=== PATIENT | male | born 1970 | race Caucasian/White ===

== ENCOUNTER 2017-03-30 00:27 | Emergency (ER) | payer SELFPAY ==
[~2017-03-30] VITALS: Ht 182.9 cm; Wt 95.6 kg
[2017-03-30 00:33] VITALS: BP 122/76; PULSE 86; RESP 18; TEMP 98; O2SAT 95
[2017-03-30 01:49] VITALS: BP 122/76; PULSE 86; RESP 18; O2SAT 99
[2017-03-30] MEDS ORDERED: LIDOCAINE HCL 2% JELLY 5 ML SYRINGE TOPICAL ONE (02:30)
[2017-03-30] MEDS ORDERED: LIDOCAINE HCL 2% 50 ML VIAL INFIL ONE (02:30)
[2017-03-30] MEDS ORDERED: IBUPROFEN 600 MG TAB PO ONE (02:30)
[2017-03-30] MEDS ORDERED: CLIN1CAP5 PO (02:55)
--- NOTE | 2017-03-30 02:55 | PD ---
HPI Chief Complaint: Skin Problem Time Seen by Provider: 02:24 Travel History International Travel<30 days: No Contact w/Intl Traveler<30days: No Traveled to known affect area: No History of Present Illness HPI Patient 46-year-old male with a history of recurrent abscesses presents emergency Department with swelling and redness of his right groin. Patient states it started yesterday in the next expanded fairly rapidly. He is not had any problems with dysuria discharge or history of STDs. Denies any fever bowel pain nausea vomiting diarrhea blood in the stool. Symptoms are moderate gradually worsening. Denies any testicular pain. PFSH Past Medical History Asthma: Yes ( A CHILD) Heart Rhythm Problems: No Cardiac Catheterization: No Cardiovascular Problems: Yes High Cholesterol: Yes Congestive Heart Failure: No COPD: Yes Diabetes: No Diminished Hearing: No Diverticulitis: Yes Hypertension: Yes Kidney Stones: Yes Respiratory: Yes (COPD) Integumentary: Yes (STATES A "SKIN DISEASE" UNK NAME) Immunizations Current: Yes ?: Not Past Surgical History Coronary Artery Bypass Graft: No Genitourinary Surgery: Yes (VASECTOMY) Tonsillectomy: Yes Family History Family Myocardial Infarction: Yes Social History Alcohol Use: Yes Tobacco Use: Yes (2 cigs per day) Substance Use: No Allergies-Medications (Allergen,Severity, Reaction): Coded Allergies: Codeine (Verified Allergy, Severe, ANAPHALXYIS, 03/30/17) Reported Meds & Prescriptions Reported Meds & Active Scripts Active Clindamycin (Clindamycin HCl) 150 Mg Cap 300 Mg PO Q6H 10 Days Review of Systems Except as stated in HPI: all other systems reviewed are Neg Physical Exam Narrative GENERAL: Well-nourished, well-developed patient. SKIN: Focused skin assessment warm/dry. There is silver dollar sized area of cellulitis to the right groin over the inguinal crease, minimal induration approximately quarter size. HEAD: Normocephalic. EYES: No scleral icterus. No injection or drainage. NECK: Supple, trachea midline. No JVD or lymphadenopathy. CARDIOVASCULAR: Regular rate and rhythm without murmurs, gallops, or rubs. RESPIRATORY: Breath sounds equal bilaterally. No accessory muscle use. GASTROINTESTINAL: Abdomen soft, non-tender, nondistended. GENITOURINARY normal circumcised penis, no scrotal tenderness, scrotal contents normal, there is no cellulitis of the perianal area scrotal skin or penis. MUSCULOSKELETAL: No cyanosis, or edema. BACK: Nontender without obvious deformity. No CVA tenderness. Data Data Last Documented VS Vital Signs Date Time Temp Pulse Resp B/P Pulse Ox O2 Delivery O2 Flow Rate FiO2 03/30/17 03:09 78 18 154/72 99 03/30/17 00:33 98.0 Orders Lidocaine 2% Jelly (Xylocaine 2% Jelly) (03/30/17 02:30) Lidocaine 2% Inj (Xylocaine 2% Inj) (03/30/17 02:30) Ibuprofen (Motrin) (03/30/17 02:30) Ed Poc Ultrasound (03/30/17 ) Clindamycin (Cleocin) (03/30/17 03:00) MDM Medical Decision Making Medical Screen Exam Complete: Yes Emergency Medical Condition: Yes Differential Diagnosis Cellulitis, abscess, LGV seems less likely, strangulated inguinal hernia seems unlikely. Narrative Course Patient was roomed emergency department, has allergy to codeine and was given ibuprofen and lidocaine jelly was applied. His pain did feel somewhat better with this. Bedside ultrasound showed minimal fluid collection. Discussed availability happy to patrizia his abscess for him but he could also consider antibiotic therapy and return to ED for reevaluation in lead hours or sooner if symptoms worsen he would like to try antibiotic therapy at this time. Discussed at length return to ED criteria symptomatic management home. Is given a first dose of and buttocks in the emergency department. Procedures Procedure Narrative Bedside ultrasound soft tissue shows significant cellulitis and cobblestoning with very small fluid collection was less than a cubic centimeter in total. Diagnosis Primary Impression: Cellulitis Qualified Code: L03.314 - Cellulitis of groin Additional Impression: Abscess Additional Instructions: If the swelling worsens return to emergency department for repeat evaluation. Med/Other Pt SpecificInfo: Prescription(s) given Scripts Clindamycin 150 Mg [id number] Mg PO Q6H 10 Days Ref 0 Prov:Krystian Muller MD 03/30/17 Disposition: 01 DISCHARGE HOME Condition: Stable Krystian Muller MD Mar 30, 2017 02:55
[2017-03-30] MEDS ORDERED: CLINDAMYCIN 150 MG CAP PO ONE (03:00)
[2017-03-30 03:09] VITALS: BP 154/72
== END 2017-03-30 03:11 | disposition home or self-care (01) ==
LOC: PHED 00:27
DX: L03.314 Cellulitis of groin (principal); L02.214 Cutaneous abscess of groin; I10 Essential (primary) hypertension; E78.00 Pure hypercholesterolemia, unspecified; Z72.0 Tobacco use; Z86.79 Personal history of other diseases of the circulatory system; Z87.09 Personal history of other diseases of the respiratory system; Z87.19 Personal history of other diseases of the digestive system; Z87.442 Personal history of urinary calculi
CPT/HCPCS: 99284

== ENCOUNTER 2017-05-30 21:43 | Emergency (ER) | payer SELFPAY ==
[~2017-05-30] VITALS: Ht 182.9 cm; Wt 90.5 kg
[~2017-05-30 21:43] MED LIST: CLIN1CAP5 PO
[2017-05-30 21:52] VITALS: BP 140/83; PULSE 82; RESP 16; TEMP 98.1; O2SAT 96
[2017-05-30] MEDS ORDERED: ACYC800T PO (22:15)
--- NOTE | 2017-05-30 22:21 | PD ---
HPI Chief Complaint: Skin Problem Time Seen by Provider: 10:05 Travel History International Travel<30 days: No Contact w/Intl Traveler<30days: No Traveled to known affect area: No History of Present Illness HPI 46-year-old male with chief complaint of a pruritic rash 2 days. Patient reports he was exposed to his friend who had adult-onset chickenpox. He reports the rash began on his axillary and upper arms and has spread rapidly over the last 12-24 hours to his trunk and arms and legs. He reports that the rash begins has a red papule and turns to blister and begins to cross. He reports intense itching. He denies fever, chills, headache. Patient is not immunocompromised. [facility] Past Medical History Asthma: Yes ( A CHILD) Heart Rhythm Problems: No Cardiac Catheterization: No Cardiovascular Problems: Yes High Cholesterol: Yes Congestive Heart Failure: No COPD: Yes Diabetes: No Diminished Hearing: No Diverticulitis: Yes Hypertension: Yes Kidney Stones: Yes Respiratory: Yes (COPD) Integumentary: Yes (STATES A "SKIN DISEASE" UNK NAME) Immunizations Current: Yes Tetanus Vaccination: < 5 Years Influenza Vaccination: No Past Surgical History Coronary Artery Bypass Graft: No Genitourinary Surgery: Yes (VASECTOMY) Tonsillectomy: Yes Social History Alcohol Use: Yes ([facility]) Tobacco Use: Yes (10/22 [[place]) Substance Use: No Allergies-Medications (Allergen,Severity, Reaction): Coded Allergies: Codeine (Verified Allergy, Severe, ANAPHALXYIS, 05/30/17) Reported Meds & Prescriptions Reported Meds & Active Scripts Active No Active Prescriptions or Reported Medications Review of Systems Except as stated in HPI: all other systems reviewed are Neg General / Constitutional: No: Fever Eyes: No: Visual changes HENT: No: Headaches Cardiovascular: No: Chest Pain or Discomfort Respiratory: No: Shortness of Breath Gastrointestinal: No: Abdominal Pain Genitourinary: No: Dysuria Musculoskeletal: No: Pain Skin: Positive Rash Physical Exam Narrative GENERAL: Well-nourished, well-developed patient. SKIN: Patient has a widespread rash with varying characteristics. There are small erythematous macules, erythematous papules, clear vesicles with crusting across to his trunk, upper and lower extremities. Rash is consistent with chickenpox. HEAD: Normocephalic. EYES: No scleral icterus. No injection or drainage. NECK: Supple, trachea midline. No JVD or lymphadenopathy. No meningismus CARDIOVASCULAR: Regular rate and rhythm without murmurs, gallops, or rubs. RESPIRATORY: Breath sounds equal bilaterally. No accessory muscle use. GASTROINTESTINAL: Abdomen soft, non-tender, nondistended. MUSCULOSKELETAL: No cyanosis, or edema. BACK: Nontender without obvious deformity. No CVA tenderness. Data Data Last Documented VS Vital Signs Date Time Temp Pulse Resp B/P Pulse Ox O2 Delivery O2 Flow Rate FiO2 05/30/17 22:01 05/30/17 21:52 98.1 82 16 96 [facility] Medical Decision Making Medical Screen Exam Complete: Yes Emergency Medical Condition: Yes Differential Diagnosis varicella, erythema multiform, impetigo, other Narrative Course 46-year-old male with chief complaint of pruritic painful rash 2 days. On physical exam the patient has small erythematous macules, erythematous papules, clear vesicles with crusting across to his trunk, upper and lower extremities. The rash is consistent with chickenpox. Patient reports his friend was recently diagnosed with chickenpox and he has had exposure to him. He denies fever, chills, headache. He is well-appearing. Patient will be treated with antivirals and instructed to take Benadryl and Tylenol as needed for symptoms. Return precautions discussed. Patient verbalizes understanding and agrees to plan Diagnosis Primary Impression: Chickenpox Qualified Code: B01.9 - Varicella without complication Referrals: Primary Care Physician Additional Instructions: Take antivirals as prescribed. He may take Benadryl 25/50 mg by mouth every 6 hours as needed for itching. He may take Tylenol as needed for pain and fever. Return to the emergency department if he developed new or worsening symptoms. Avoid contact with or immunocompromise persons. Scripts Acyclovir 800 Mg [id number] Mg PO 5 TIMES A DAY 7 Days Ref 0 Prov:Bekah Liu 05/30/17 Disposition: 01 DISCHARGE HOME Condition: Stable Bekah Liu May 30, 2017 22:21
== END 2017-05-30 22:30 | disposition home or self-care (01) ==
LOC: PHEFT 21:43
DX: B01.9 Varicella without complication (principal); I10 Essential (primary) hypertension; J44.9 Chronic obstructive pulmonary disease, unspecified; E78.00 Pure hypercholesterolemia, unspecified; Z87.442 Personal history of urinary calculi; F17.210 Nicotine dependence, cigarettes, uncomplicated
CPT/HCPCS: 99283

== ENCOUNTER 2017-08-27 15:56 | Emergency (ER) | payer SELFPAY ==
[~2017-08-27] VITALS: Ht 182.9 cm; Wt 86.0 kg
[~2017-08-27 15:56] MED LIST changes: +ACYC800T PO; -CLIN1CAP5 PO
[2017-08-27 16:02] VITALS: BP 156/90; PULSE 77; RESP 16; TEMP 98.1; O2SAT 97
[2017-08-27] MEDS ORDERED: TYLE325T PO (16:12)
[2017-08-27] MEDS ORDERED: IBUP1TAB5 PO (16:12)
[2017-08-27] MEDS ORDERED: CLIN150C14 PO (16:12)
--- NOTE | 2017-08-27 16:37 | PD ---
HPI Chief Complaint: Oral / Dental Pain or Problem Time Seen by Provider: 16:06 Travel History International Travel<30 days: No Contact w/Intl Traveler<30days: No Traveled to known affect area: No History of Present Illness HPI This is a 47 year old male who presents to the emergency department with facial swelling, constant, moderate severity, going on for 2 weeks with no associated fevers or chills. Pt. has been on 150 mg of clindamycin for 2 weeks, and despite this he has been worsening. Pt. has some pain under his eye and in his jaw. Pt. has had dental abscesses before. PFSH Past Medical History Asthma: Yes ( A CHILD) Heart Rhythm Problems: No Cardiac Catheterization: No Cardiovascular Problems: Yes High Cholesterol: Yes Congestive Heart Failure: No COPD: Yes Diabetes: No Diminished Hearing: No Diverticulitis: Yes Hypertension: Yes Kidney Stones: Yes Respiratory: Yes (COPD) Integumentary: Yes (STATES A "SKIN DISEASE" UNK NAME) Immunizations Current: Yes Tetanus Vaccination: > 5 Years Influenza Vaccination: No Past Surgical History Coronary Artery Bypass Graft: No Genitourinary Surgery: Yes (VASECTOMY) Tonsillectomy: Yes Family History Family Myocardial Infarction: Yes Social History Alcohol Use: Yes (OCC) Tobacco Use: Yes (1ppd) Substance Use: No Allergies-Medications (Allergen,Severity, Reaction): Coded Allergies: codeine (Verified Allergy, Severe, ANAPHALXYIS, 08/27/17) Reported Meds & Prescriptions Reported Meds & Active Scripts Active Reported Ibuprofen 400 Mg Tab 400 Mg PO Q6H PRN Tylenol (Acetaminophen) 325 Mg Tab 650 Mg PO ONCE PRN Clindamycin (Clindamycin HCl) 150 Mg Cap 150 Mg PO QID Review of Systems Except as stated in HPI: all other systems reviewed are Neg Physical Exam Narrative GENERAL:Well appearing, no acute distress SKIN: Focused skin assessment warm and dry. HEAD: Atraumatic. Normocephalic. EYES: Pupils equal and round. No injection or drainage. ENT: Moist mucous membranes. Poor dentition. Swelling over the right maxillary area with a rubbery indurated area adjacent to the right nose NECK: Trachea midline. CARDIOVASCULAR: Regular rate and rhythm. No murmur appreciated. RESPIRATORY: Clear to auscultation. Breath sounds equal bilaterally. GASTROINTESTINAL: Abdomen soft, non-tender, nondistended. MUSCULOSKELETAL: No obvious deformities. NEUROLOGICAL: Awake and alert. No obvious cranial nerve deficits. Moving all extremities. PSYCHIATRIC: Appropriate mood and affect; insight and judgment normal. Data Data Last Documented VS Vital Signs Date Time Temp Pulse Resp B/P (MAP) Pulse Ox O2 Delivery O2 Flow Rate FiO2 08/27/17 16:02 98.1 77 16 156/90 (112) 97 Orders Orders Complete Blood Count With Diff (08/27/17 16:49) Comprehensive Metabolic Panel (08/27/17 16:49) ^ Insert Iv (08/27/17 16:49) Ct Facial Bones W Iv Contrast (08/27/17 ) Iohexol 350 Inj (Omnipaque 350 Inj) (08/27/17 17:41) Labs Laboratory Tests Test 08/27/17 16:59 White Blood Count 8.3 TH/MM3 Red Blood Count 5.01 MIL/MM3 Hemoglobin 15.6 GM/DL Hematocrit 45.9 % Mean Corpuscular Volume 91.6 FL Mean Corpuscular Hemoglobin 31.2 PG Mean Corpuscular Hemoglobin Concent 34.0 % Red Cell Distribution Width 13.2 % Platelet Count 189 TH/MM3 Mean Platelet Volume 8.9 FL Neutrophils (%) (Auto) 63.1 % Lymphocytes (%) (Auto) 25.5 % Monocytes (%) (Auto) 8.9 % Eosinophils (%) (Auto) 1.7 % Basophils (%) (Auto) 0.8 % Neutrophils # (Auto) 5.3 TH/MM3 Lymphocytes # (Auto) 2.1 TH/MM3 Monocytes # (Auto) 0.7 TH/MM3 Eosinophils # (Auto) 0.1 TH/MM3 Basophils # (Auto) 0.1 TH/MM3 CBC Comment DIFF FINAL Differential Comment Blood Urea Nitrogen 12 MG/DL Creatinine 0.77 MG/DL Random Glucose 91 MG/DL Total Protein 7.0 GM/DL Albumin 3.3 GM/DL Calcium Level 8.5 MG/DL Alkaline Phosphatase 79 U/L Aspartate Amino Transf (AST/SGOT) 13 U/L Alanine Aminotransferase (ALT/SGPT) 24 U/L Total Bilirubin 0.3 MG/DL Sodium Level 136 MEQ/L Potassium Level 3.8 MEQ/L Chloride Level 104 MEQ/L Carbon Dioxide Level 27.6 MEQ/L Anion Gap 4 MEQ/L Estimat Glomerular Filtration Rate 108 ML/MIN MDM Medical Decision Making Medical Screen Exam Complete: Yes Emergency Medical Condition: Yes Interpretation(s) Afebrile, no tachycardia, hypertensive No leukocytosis Electrolytes are reassuring CT: Extensive dental disease Multiple enlarged right lymph node Moderate mucoperiosteal thickening in the right maxillary antrum Differential Diagnosis Dental abscess, dental caries, facial abscess, Fernando angina Narrative Course This is a 47-year-old male who presents to the emergency department with facial swelling in the setting of very poor dentition. CT scan was performed given some firm rubbery area on the right maxillary face which I was concerned might be a facial abscess. He has no underlying abscess. He has significant dental. Some evidence of sinusitis. Patient will be discharged on penicillin. He's been taking clindamycin but not an appropriate dose. He was asked to follow-up with a dentist. Diagnosis Primary Impression: Dental caries Additional Instructions: If you develop fever, chills, or swelling under your chin or tongue return to the emergency room. Follow-up with a dentist as soon as possible. Med/Other Pt SpecificInfo: Prescription(s) given Scripts Penicillin V Potassium (Penicillin V Potassium) 500 Mg Tab 500 MG PO Q8H for Infection for 7 Days, #21 TAB 0 Refills Prov: Libby Hong MD 08/27/17 Disposition: 01 DISCHARGE HOME Condition: Stable Libby Hong MD Aug 27, 2017 16:37
[2017-08-27 17:17] LABS: AUTOMATED NEUTROPHIL # 5.3 TH/MM3 (1.8-7.7); BASOPHIL # 0.1 TH/MM3 (0-0.2); BASOPHIL % 0.8 % (0.0-2.0); EOSINOPHIL # 0.1 TH/MM3 (0-0.4); EOSINOPHIL % 1.7 % (0.0-4.0); HEMATOCRIT 45.9 % (39.0-51.0); HEMO FLAGS DIFF FINAL; LYMPH % 25.5 % (9.0-44.0); LYMPHOCYTE # 2.1 TH/MM3 (1.0-4.8); MEAN CELL VOLUME 91.6 FL (80.0-100.0); MEAN CORPUSCULAR HEMOGLOBIN 31.2 PG (27.0-34.0); MONO % 8.9 % (0.0-8.0); NEUT % 63.1 % (16.0-70.0); PLATELET COUNT 189 TH/MM3 (150-450); RED BLOOD COUNT 5.01 MIL/MM3 (4.50-5.90); RED CELL DISTRIBUTION WIDTH 13.2 % (11.6-17.2); WHITE BLOOD COUNT 8.3 TH/MM3 (4.0-11.0)
[2017-08-27 17:22] LABS: CHLORIDE 104 MEQ/L (98-107); POTASSIUM 3.8 MEQ/L (3.5-5.1); SODIUM (NA) 136 MEQ/L (136-145)
[2017-08-27 17:26] LABS: ANION GAP 4 MEQ/L (5-15); BICARBONATE 27.6 MEQ/L (21.0-32.0); BLOOD UREA NITROGEN 12 MG/DL (7-18)
[2017-08-27 17:29] LABS: ALT (GPT) 24 U/L (12-78); AST (GOT) 13 U/L (15-37); GLOMERULAR FILTRATION RATE 108 ML/MIN (>89)
[2017-08-27 17:30] LABS: TOTAL BILIRUBIN ADULT 0.3 MG/DL (0.2-1.0)
[2017-08-27 17:32] LABS: ALKALINE PHOSPHATASE 79 U/L (45-117)
[2017-08-27] MEDS ORDERED: IOHEXOL 350 MG/ML 10 ML VIAL (for RAD DIAG) IVCONTRAST ONE (17:41)
--- NOTE | 2017-08-27 18:00 | RADRPT ---
EXAM DATE/TIME: 08/27/2017 17:36 [facility] COMPARISON: No previous studies available for comparison. INDICATIONS : Dental pain. Right facial swelling. No improvement with medication. IV CONTRAST: 95 cc Omnipaque 350 (iohexol) IV RADIATION DOSE: 30.03 CTDIvol (mGy) MEDICAL HISTORY : Hypertension. Chronic obstructive pulmonary disease. SURGICAL HISTORY : Tonsillectomy. ENCOUNTER: Initial ACUITY: 2 weeks PAIN SCALE: 6/10 LOCATION: Right facial TECHNIQUE: Volumetric scanning of the facial bones was performed. Using automated exposure control and adjustme nt of the mA and/or kV according to patient size, radiation dose was kept as low as reasonably achiev able to obtain optimal diagnostic quality images. DICOM format image data is available electronicall y for review and comparison. FINDINGS: There is extensive dental disease lucencies within the maxillae and mandible adjacent to multiple elia ts. One of the largest is associated with a root of the right central incisor. No definite abscess is identified. There is mild subcutaneous edema and skin thickening, right greater than left. A few mil dly enlarged right level II lymph nodes are identified. The parotid and submandibular glands demonstr ate no abnormality. No acute vascular abnormality is seen. There is moderate to severe right maxillar y mucoperiosteal thickening. Remaining visualized sinuses are clear. Globes demonstrate no abnormality. Intracranial structures demonstrate no acute finding. CONCLUSION: 1. Extensive dental disease with no abscess identified. 2. There are multiple mildly enlarged right level II lymph nodes which may be reactive. 3. Moderate to severe mucoperiosteal thickening in the right maxillary antrum. Ramiro Alvarez MD on August 27, 2017 at 17:52 Board Certified Radiologist. This report was verified electronically.
[2017-08-27] MEDS ORDERED: PENI500T PO (18:08)
[2017-08-27 18:12] VITALS: BP 149/84; TEMP 97.7
== END 2017-08-27 18:19 | disposition home or self-care (01) ==
LOC: PHED 15:56
DX: K02.9 Dental caries, unspecified (principal); F17.200 Nicotine dependence, unspecified, uncomplicated
CPT/HCPCS: 70487; 80053; 85025; 99285; Q9967

== ENCOUNTER 2017-12-25 14:06 | Emergency (ER) | payer SELFPAY ==
[~2017-12-25] VITALS: Ht 182.9 cm; Wt 93.0 kg
[~2017-12-25 14:06] MED LIST changes: -ACYC800T PO; +CLIN150C14 PO; +IBUP1TAB5 PO; +PENI500T PO; +TYLE325T PO
[2017-12-25 14:09] VITALS: BP 145/91; PULSE 84; RESP 16; TEMP 97.4; O2SAT 97
[2017-12-25] MEDS ORDERED: CEPH-460 PO (14:32)
[2017-12-25] MEDS ORDERED: BACT800T5 PO (14:32)
--- NOTE | 2017-12-25 14:32 | PD ---
HPI Chief Complaint: Skin Problem Time Seen by Provider: 14:22 Travel History International Travel<30 days: No Contact w/Intl Traveler<30days: No Traveled to known affect area: No History of Present Illness HPI This 47-year-old male is complaining of a boil on his right hip. He says he tends to get boils. He is at this time for several days. He is not sure what initiated it. There was a scab over it and it came off and there is been some drainage of purulent material. He has not had fever or chills. He does not have diabetes. PFSH Past Medical History Asthma: Yes ( A CHILD) Heart Rhythm Problems: No Cardiac Catheterization: No Cardiovascular Problems: Yes High Cholesterol: Yes Congestive Heart Failure: No COPD: Yes Diabetes: No Diminished Hearing: No Diverticulitis: Yes Hypertension: Yes Kidney Stones: Yes Respiratory: Yes (COPD) Integumentary: Yes (STATES A "SKIN DISEASE" UNK NAME) Immunizations Current: Yes Past Surgical History Coronary Artery Bypass Graft: No Genitourinary Surgery: Yes (VASECTOMY) Tonsillectomy: Yes Social History Alcohol Use: Yes (OCC) Tobacco Use: Yes (1ppd) Substance Use: No Allergies-Medications (Allergen,Severity, Reaction): Coded Allergies: codeine (Verified Allergy, Severe, ANAPHALXYIS, 12/25/17) Reported Meds & Prescriptions Reported Meds & Active Scripts Active Penicillin V Potassium 500 Mg Tab 500 Mg PO Q8H 7 Days Reported Ibuprofen 400 Mg Tab 400 Mg PO Q6H PRN Tylenol (Acetaminophen) 325 Mg Tab 650 Mg PO ONCE PRN Clindamycin (Clindamycin HCl) 150 Mg Cap 150 Mg PO QID Review of Systems General / Constitutional: No: Fever, Chills Eyes: No: Diploplia HENT: No: Headaches Cardiovascular: No: Chest Pain or Discomfort, Palpitations Respiratory: No: Cough Gastrointestinal: No: Nausea, Vomiting Genitourinary: No: Urgency, Frequency Musculoskeletal: No: Myalgias Skin: Positive Rash, Positive Lumps Endocrine: No: Heat Intolerance, Cold Intolerance Hematologic/Lymphatic: No: Easy Bruising Physical Exam Narrative GENERAL: Well-developed male SKIN: Focused skin assessment warm/dry. Lateral to the right hip there is a area of swelling and erythema. There is some purulent drainage. The area of swelling is about 3 cm in diameter there is a central ulceration HEAD: Atraumatic. Normocephalic. EYES: Pupils equal and round. No scleral icterus. No injection or drainage. ENT: No nasal bleeding or discharge. Mucous membranes pink and moist. NECK: Trachea midline. No JVD. MUSCULOSKELETAL: No obvious deformities. No clubbing. No cyanosis. No edema. There is full range of motion of the right hip NEUROLOGICAL: Awake and alert. No obvious cranial nerve deficits. Motor grossly within normal limits. Normal speech. PSYCHIATRIC: Appropriate mood and affect; insight and judgment normal. Data Data Last Documented VS Vital Signs Date Time Temp Pulse Resp B/P (MAP) Pulse Ox O2 Delivery O2 Flow Rate FiO2 12/25/17 14:09 97.4 84 16 145/91 (109) 97 Orders Orders Wound Culture And Gram Stain (12/25/17 14:27) [facility] Medical Decision Making Medical Screen Exam Complete: Yes Emergency Medical Condition: Yes Medical Record Reviewed: Yes Differential Diagnosis Differential includes cellulitis, abscess, Narrative Course This is a superficial abscess which has had some spontaneous drainage. It is draining at this time and I do not think any procedure is warranted to increase drainage. I will initiate antibiotics and I have advised the patient to use warm compresses and soak it 2-3 times daily. Diagnosis Primary Impression: Abscess Additional Instructions: Apply warm compresses, soak as much as possible Scripts Sulfamethoxazole-Trimethoprim (Bactrim DS) 800-160 Mg Tab 1 TAB PO BID for Infection, #20 TAB 0 Refills Prov: Román Sanchez MD 12/25/17 Cephalexin (Keflex) 500 Mg Capsule 500 MG PO Q6H for Infection for 10 Days, #40 CAP 0 Refills Prov: Román Sanchez MD 12/25/17 Disposition: 01 DISCHARGE HOME Condition: Stable Román Sanchez MD Dec 25, 2017 14:32
[2017-12-25] MEDS ORDERED: MULTCAP3 PO (14:34)
[2017-12-25] MEDS ORDERED: FISHCAP4 PO (14:34)
== END 2017-12-25 14:50 | disposition home or self-care (01) ==
LOC: PHED 14:06
DX: L02.415 Cutaneous abscess of right lower limb (principal); B95.62 Methicillin resistant Staphylococcus aureus infection as the cause of diseases classified elsewhere; Z16.19 Resistance to other specified beta lactam antibiotics; Z16.11 Resistance to penicillins
CPT/HCPCS: 86403; 87070; 87186; 87205; 99283

== ENCOUNTER 2018-02-20 13:05 | Emergency (ER) | payer SELFPAY ==
[~2018-02-20] VITALS: Ht 182.9 cm; Wt 97.9 kg
[~2018-02-20 13:05] MED LIST changes: +BACT800T5 PO; +CEPH-460 PO; -CLIN150C14 PO; +FISHCAP4 PO; -IBUP1TAB5 PO; +MULTCAP3 PO; -PENI500T PO; -TYLE325T PO
[2018-02-20 13:10] VITALS: BP 167/97; PULSE 100; RESP 16; TEMP 98.6; O2SAT 98
[2018-02-20] MEDS ORDERED: ROBA750T PO (14:33)
[2018-02-20] MEDS ORDERED: IBUP1TAB7 PO (14:33)
--- NOTE | 2018-02-20 14:36 | PD ---
HPI Chief Complaint: Back/ Neck Pain or Injury Time Seen by Provider: 14:27 Travel History International Travel<30 days: No Contact w/Intl Traveler<30days: No Traveled to known affect area: No History of Present Illness HPI 47-year-old male here with low back pain 2 weeks. Patient cannot recall specific injury or trauma. He believes he may have lifted a heavy box which resulted in injury. He denies fever, chills, incontinence, saddle anesthesia, paresthesia or weakness of the extremities. Denies any history of IV drug use. Symptom severity is moderate. Aggravated by movement and slightly alleviated with rest. PFSH Past Medical History Asthma: Yes ( A CHILD) Heart Rhythm Problems: No Cardiac Catheterization: No Cardiovascular Problems: Yes High Cholesterol: Yes Congestive Heart Failure: No COPD: Yes Diabetes: No Diminished Hearing: No Diverticulitis: Yes Heparin Induced Thrombocytopen: No Hypertension: Yes Kidney Stones: Yes Respiratory: Yes (COPD) Integumentary: Yes (STATES A "SKIN DISEASE" UNK NAME) Immunizations Current: Yes Past Surgical History Coronary Artery Bypass Graft: No Genitourinary Surgery: Yes (VASECTOMY) Tonsillectomy: Yes Family History Family Myocardial Infarction: Yes Social History Alcohol Use: Yes (OCC) Tobacco Use: Yes (VAPOR) Substance Use: No Allergies-Medications (Allergen,Severity, Reaction): Coded Allergies: codeine (Verified Allergy, Severe, ANAPHALXYIS, 12/25/17) Reported Meds & Prescriptions Reported Meds & Active Scripts Active No Active Prescriptions or Reported Medications Review of Systems Except as stated in HPI: all other systems reviewed are Neg General / Constitutional: No: Fever Eyes: No: Visual changes HENT: No: Headaches Cardiovascular: No: Chest Pain or Discomfort Respiratory: No: Shortness of Breath Gastrointestinal: No: Abdominal Pain Genitourinary: No: Dysuria Skin: No Rash Neurologic: No: Weakness Physical Exam Narrative GENERAL: Alert and well-appearing 47-year-old male. He is resting comfortably asleep on the stretcher. He is easily arousable. SKIN: Warm and dry. HEAD: Atraumatic. Normocephalic. EYES: Pupils equal and round. No scleral icterus. No injection or drainage. NECK: Trachea midline. No JVD. CARDIOVASCULAR: Regular rate and rhythm. RESPIRATORY: No accessory muscle use. Clear to auscultation. Breath sounds equal bilaterally. GASTROINTESTINAL: Abdomen soft, non-tender, nondistended. Hepatic and splenic margins not palpable. MUSCULOSKELETAL: Extremities without clubbing, cyanosis, or edema. No obvious deformities. NEUROLOGICAL: Awake and alert. No obvious cranial nerve deficits. Motor grossly within normal limits. Five out of 5 muscle strength in the arms and legs. Normal speech. Ambulates with a steady gait PSYCHIATRIC: Appropriate mood and affect; insight and judgment normal. BACK: No CVA tenderness. No rash. No point tenderness on palpation of the spine. No step-off deformity. Tenderness to the lumbar paravertebral musculature. Data Data Last Documented VS Vital Signs Date Time Temp Pulse Resp B/P (MAP) Pulse Ox O2 Delivery O2 Flow Rate FiO2 02/20/18 13:10 98.6 100 16 167/97 (120) 98 Orders Orders Ketorolac Inj (Toradol Inj) (02/20/18 14:45) Orphenadrine Inj (Norflex Inj) (02/20/18 14:45) MDM Medical Decision Making Medical Screen Exam Complete: Yes Emergency Medical Condition: Yes Differential Diagnosis Lumbar strain, DJD, herniated disc Narrative Course 47-year-old male here with low back pain ongoing for 2 weeks. He has tenderness of the paravertebral musculature. Normal neurologic exam. He was given a shot of Toradol and Norflex. He reports symptom improvement. He is stable and ready for discharge. Diagnosis Primary Impression: Low back pain Qualified Codes: M54.5 - Low back pain Referrals: Primary Care Physician Additional Instructions: Medication as directed. Avoid heavy lifting or strenuous activity. Ice and/or heat for comfort. Follow-up with her primary doctor. Return if you have new or worsening symptoms Scripts Ibuprofen (Ibuprofen) 800 Mg Tab 800 MG PO Q6HR Y for PAIN, #40 TAB 0 Refills Prov: Bekah Liu 02/20/18 Methocarbamol (Robaxin) 750 Mg Tab 750 MG PO QID for Muscle Spasm, #15 TAB 0 Refills Prov: Bekah Liu 02/20/18 Disposition: 01 DISCHARGE HOME Condition: Stable Bekah Liu February 20, 2018 14:36
[2018-02-20] MEDS ORDERED: KETOROLAC TROMETHAMINE 60 MG/2 ML (IM) VIAL IM ONE (14:45)
[2018-02-20] MEDS ORDERED: ORPHENADRINE INJ 60 MG/2 ML AMP IM ONE (14:45)
== END 2018-02-20 14:57 | disposition home or self-care (01) ==
LOC: PHEFT 13:05
DX: M54.5 Low back pain (principal); J45.909 Unspecified asthma, uncomplicated; E78.00 Pure hypercholesterolemia, unspecified; J44.9 Chronic obstructive pulmonary disease, unspecified; I10 Essential (primary) hypertension; F17.290 Nicotine dependence, other tobacco product, uncomplicated; Z87.442 Personal history of urinary calculi; Z88.5 Allergy status to narcotic agent
CPT/HCPCS: 96372; 99283; J1885; J2360